=== PATIENT | male | born 1985 | race African-American/Black ===

== ENCOUNTER 2017-09-15 07:54 | Emergency (ER) | payer MEDICAID ==
[2017-09-15] MEDS: ALBUTEROL SULFATE 2.5 MG/0.5 ML INH NEB SOLN NEB (08:36)
[2017-09-15 09:09] LABS: INFLUENZA A AMPLIFICATION NEGATIVE (NEGATIVE); INFLUENZA B AMPLIFICATION NEGATIVE (NEGATIVE)
[2017-09-15] MEDS: IBUPROFEN 600 MG TAB PO (09:30)
== END 2017-09-15 09:33 | disposition home or self-care (01) ==
LOC: M ED 07:54
DX: J06.9 Acute upper respiratory infection, unspecified (principal); J45.909 Unspecified asthma, uncomplicated; Z79.899 Other long term (current) drug therapy; Z91.010 Allergy to peanuts; F17.210 Nicotine dependence, cigarettes, uncomplicated
CPT/HCPCS: 71046